=== PATIENT | female | born 1965 | race Caucasian/White ===

== ENCOUNTER 2020-04-09 19:26 | Emergency (ER) | payer BC, SELFPAY ==
[2020-04-09 19:40] VITALS: BP 119/88; PULSE 94; RESP 16; TEMP 37; O2SAT 99
[2020-04-09 19:47] VITALS: BP 119/88; PULSE 94; RESP 16; TEMP 37; O2SAT 99
--- NOTE | 2020-04-09 20:16 | ED.WOUNDLAC ---
HPI - Wound/Laceration General Chief Complaint: Extremity Injury, Lower Stated Complaint: Right tie Pain Time Seen by Provider: 04/09/20 19:50 Source: patient and RN notes reviewed Mode of arrival: ambulatory Limitations: no limitations History of Present Illness HPI narrative: Patient presents today complaining of an injury to her right great toenail that was sustained just prior to arrival. She missed a stair at home and bent the toenail back. She tried no home interventions prior to arrival. She is unsure of the date of her last tetanus vaccine. She declines to have her tetanus updated today and will check with her PCP. Related Data Home Medications Medication Instructions Recorded Confirmed duloxetine mg PO 04/09/20 levothyroxine 04/09/20 lovastatin mg 04/09/20 Allergies Allergy/AdvReac Type Severity Reaction Status Date / Time No Known Allergies Allergy Verified 06/14/18 14:01 Review of Systems Review of Systems: Narrative: CONSTITUTIONAL: Denies body aches, fever, chills, or sweats. EYES: Denies visual changes, redness, or discharge. ENT: Denies rhinorrhea, congestion, sore throat, or otalgia. CARDIOVASCULAR: Denies chest pain, palpitations, or edema. RESPIRATORY: Denies cough or dyspnea. GASTROINTESTINAL: Denies abdominal pain, nausea, vomiting, or diarrhea. GENITOURINARY: Denies dysuria or hematuria. SKIN: Denies rash, itching. Injury to right great toenail MUSCULOSKELETAL: Denies back pain, joint pain, or myalgia. NEUROLOGIC: Denies headache, numbness, tingling, or weakness. PSYCH: Denies depression or anxiety. [facility] Family History Family History (Updated 03/05/11 @ 14:05 by DOCTOR UNKNOWN) Other Family history of alcoholism Family history of arthritis Hypertension Social History Social History Alcohol intake: current Comments At time of signature, I have reviewed and agree with nursing past medical, surgical, social and family history unless otherwise noted. Please see nursing chart for further information. There is no relevant family history pertinent to the presenting complaint Exam Narrative: Exam Narrative: GENERAL: Well-appearing, well-nourished, and in no acute distress. HEAD: Normocephalic, atraumatic. EYES: EOMI. No redness or drainage. ENT: Mucous membranes pink and moist. NECK: Normal AROM. CHEST: No respiratory distress. EXTREMITIES: Normal range of motion. No edema. Right great toe: base of nail has been from nailbed, but has been placed back into anatomical position. There is a small amount of active bleeding at the base of the cuticle. The nail is intact. The nail seems to be attached to the nail bed at the distal half of the nailbed. Full AROM. Somewhat decreased sensation to the distal toe. Capillary refill normal. AROM normal. SKIN: Warm, dry, no rash. Capillary refill normal. Normal skin turgor. NEURO: No focal deficits. Alert and oriented x3. Gait steady. PSYCH: Normal affect. No signs of depression or anxiety. Course Course Emergency Course: Extensive discussion with patient regarding options for nail retention: best option would be to place sutures at each distal corner of the nail for ~4-6 weeks to allow the nail bed to heal and the nail to protect the bed for as long as possible before the nail inevitably falls off. This option would be somewhat painful as a digital block or local would have to be placed in order to get the sutures in place. Option [address] steri strips and glue to accomplish a similar goal, but would not be quite as secure and would not last for as long. It would not be as painful. Option [address] medical tape around the area that patient could change as needed. I gave patient the benefits of all of these options as she is very concerned about the costs associated with each. We did also discuss at length the fact that none of these options will give her a better chance at keeping her t
== END 2020-04-09 20:30 | disposition home or self-care (01) ==
PROVIDERS: Emergency Provider Nurse Practitioner; PCP Physician Assistant
DX: S99.921A Unspecified injury of right foot, initial encounter (principal); W10.9XXA Fall (on) (from) unspecified stairs and steps, initial encounter; E78.00 Pure hypercholesterolemia, unspecified; E03.9 Hypothyroidism, unspecified; F41.9 Anxiety disorder, unspecified
CPT/HCPCS: 12001; 99212; G0463

== ENCOUNTER → 2020-05-23 17:40 | Outpatient (CLI) | payer BC, SELFPAY ==
--- NOTE | ~2020-05-23 | MM_ITS ---
EXAMINATION: MM scrn dixie implant BI w mira HISTORY: Screening mammogram. TECHNIQUE: Craniocaudal and mediolateral oblique 3-D tomosynthesis images with implant displacement a nd synthetic 2-D images were generated. Craniocaudal and mediolateral oblique views of the breasts wi thout implant displacement were obtained using full field digital mammography. CAD analysis was submi tted and interpreted. COMPARISON: Comparison to multiple prior studies sequentially, with oldest reviewed study dated 09/2016. BREAST PARENCHYMAL COMPOSITION: There are scattered areas of fibroglandular density. FINDINGS: There are bilateral subpectoral saline implants. Bilateral breast asymmetries are stable. T here is no evidence of suspicious mass, calcification, or architectural distortion to suggest maligna ncy in either breast. There has been no suspicious interval change. IMPRESSION: 1. No mammographic evidence of malignancy. 2. Recommend routine screening mammography in one year. BI-RADS Category 1: Negative Reviewed, dictated and finalized at location A. O TECHNICIAN
== END ==
PROVIDERS: PCP Physician Assistant; Visit Provider Physician Assistant
DX: Z12.31 Encounter for screening mammogram for malignant neoplasm of breast (principal)
CPT/HCPCS: 77063; 77067

== ENCOUNTER → 2021-05-26 17:34 | Outpatient (CLI) | payer BC, SELFPAY ==
--- NOTE | ~2021-05-26 | MM_ITS ---
EXAMINATION: MM scrn dixie implant BI w mira HISTORY: Screening mammogram TECHNIQUE: Craniocaudal and mediolateral oblique 3-D tomosynthesis images with implant displacement a nd synthetic 2-D images were generated. Craniocaudal and mediolateral oblique views of the breasts wi thout implant displacement were obtained using full field digital mammography. CAD analysis was submi tted and interpreted. COMPARISON: Comparison to multiple prior studies sequentially, with oldest reviewed study dated 09/2016. BREAST PARENCHYMAL COMPOSITION: Breast composed of scattered areas of fibroglandular density FINDINGS: There is no evidence of suspicious mass, calcification, or architectural distortion to sugg est malignancy in either breast. There has been no suspicious interval change. IMPRESSION: 1. No mammographic evidence of malignancy. 2. Recommend routine screening mammography in one year. BI-RADS Category 1: Negative Reviewed, dictated and finalized at location A. FILLER
== END ==
PROVIDERS: PCP Physician Assistant; Visit Provider Physician Assistant
DX: Z12.31 Encounter for screening mammogram for malignant neoplasm of breast (principal)
CPT/HCPCS: 77063; 77067

== ENCOUNTER → 2022-09-21 13:11 | Outpatient (CLI) | payer BC, SELFPAY ==
--- NOTE | ~2022-09-21 | MM_ITS ---
EXAMINATION: MM scrn dixie implant BI w mira HISTORY: Screening mammogram TECHNIQUE: Craniocaudal and mediolateral oblique 3-D tomosynthesis images with implant displacement a nd synthetic 2-D images were generated. Craniocaudal and mediolateral oblique views of the breasts wi thout implant displacement were obtained using full field digital mammography. CAD analysis was submi tted and interpreted. COMPARISON: 05/26/2021, 05/2020, 04/11/2019 bilateral screening mammogram examinations BREAST PARENCHYMAL COMPOSITION: There are scattered areas of fibroglandular density. FINDINGS: Status post bilateral augmentation mammoplasty. There are 2 biopsy markers on the left. History of prior benign biopsy. There is no evidence of suspicious mass, calcification, or architectural distortion to suggest malign pedro in either breast. There has been no suspicious interval change. IMPRESSION: 1. No mammographic evidence of malignancy. 2. Recommend routine screening mammography in one year. BI-RADS Category 1: Negative Reviewed, dictated and finalized at location A.
== END ==
PROVIDERS: PCP Physician Assistant; Visit Provider Physician Assistant
DX: Z12.31 Encounter for screening mammogram for malignant neoplasm of breast (principal)
CPT/HCPCS: 77063; 77067

== ENCOUNTER 2023-10-03 08:08 | Emergency (ER) | payer OTHER, SELFPAY ==
--- NOTE | 2023-10-03 08:17 | ED.GENADULT ---
HPI - General Adult General Chief complaint: Upper Respiratory Infection Stated complaint: Cough Source: patient, RN notes reviewed and old records reviewed Mode of arrival: ambulatory Limitations: no limitations History of Present Illness HPI narrative: 50-year-old female presents to [facility] with complaints of left ear pain for the past 3 days, patient states then yesterday started having sinus congestion, rhinorrhea, cough, scratchy throat, fatigue. Patient states did work in damp basement for 2 days prior to symptoms. Patient has not taken anything for symptoms. Related Data Home Medications Medication Instructions Recorded Confirmed duloxetine 60 mg capsule,delayed mg PO 04/09/20 07/12/23 release levothyroxine 75 mcg tablet 04/09/20 07/12/23 lovastatin 40 mg tablet mg 04/09/20 07/12/23 Allergies Allergy/AdvReac Type Severity Reaction Status Date / Time No Known Allergies Allergy Verified 07/12/23 08:47 Review of Systems Constitutional: Constitutional: Reports no additional constitutional complaints, Denies body ache(s), Denies chills, Reports fatigue, Denies fever(s) and Denies headache(s) Eyes: Eyes: Reports no additional eye complaints and Denies blurry vision ENT: Reports system reviewed and no additional complaints, except as documented, Denies vertigo, Denies dizziness, Denies ear discharge, Reports otalgia, Denies facial pain, Denies headache(s), Reports nasal congestion, Reports nasal discharge, Denies sinus pain, Reports sinus pressure and Reports sore throat Cardiovascular: Cardiovascular: Reports no additional cardiovascular complaints, Denies chest pain, Denies chest pain at rest, Denies rapid heart rate and Denies dyspnea Respiratory: Respiratory: Reports no additional respiratory complaints, Reports chest congestion, Reports cough, Denies pain on inspiration, Denies pain with cough and Denies dyspnea Gastrointestinal: Gastrointestinal: Denies abdominal pain, Denies diarrhea, Denies nausea and Denies vomiting Integumentary/Breasts: Skin/Breast: Denies rash Neurologic: Reports system reviewed and no additional complaints, except as documented, Denies vertigo, Denies dizziness and Denies headache(s) Endocrine: Endocrine: Denies fatigue [facility] Surgical History Surgical History H/O breast augmentation Family History Family History Father Alcoholism Heart disease Sibling Depression Other Family history of alcoholism Family history of arthritis Hypertension Social History Social History Smoking status: Never smoker Alcohol intake: current Substance use: never Substance use type: does not use Do You Feel Safe in your Home?: Yes Lack of Transportation: No Lack of Food: Never True Current Housing: I Have Housing Concerned About Future Housing: No Difficulty Paying Gas/Electric Bills: No Difficulty Paying for Meds: No Currently Unemployed: No Education: High School Diploma/GED Difficulty w/ Childcare or Family Care: No Comments At the time of my signature, I reviewed and agree with the nursing past medical, surgical, social, and family history. There is no relevant family history pertinent to the patient complaint. Exam Const: General: cooperative, healthy appearing, no acute distress and well nourished Nutritional Appearance: well nourished Orientation/consciousness: patient oriented x3 Limitations: no limitations HENMT: Head: normal to inspection and normocephalic Ears: external ears normal, EAC's normal, mastoids normal and TM abnormal retracted bilateral Face/Nose/Sinus: Normal nasal mucous membranes and turbinates present, normal facial exam and sinuses nontender Face and sinus: normal facial exam Mouth: Yes Normal oral and palatal mucosa present, Yes oropharynx normal and Y
[2023-10-03 08:27] VITALS: BP 110/80; PULSE 88; RESP 20; TEMP 36.6; O2SAT 100
== END 2023-10-03 08:55 | disposition home or self-care (01) ==
PROVIDERS: Emergency Provider Registered Nurse; PCP Physician Assistant
DX: J30.9 Allergic rhinitis, unspecified (principal); Z20.822 Contact with and (suspected) exposure to COVID-19
CPT/HCPCS: 87081; 87426; 87880; 99213; G0463

== ENCOUNTER 2024-04-25 13:22 | Outpatient (CLI) | payer OTHER, SELFPAY ==
--- NOTE | ~2024-04-25 | MM_ITS ---
EXAMINATION: MM scrn dixie implant BI w mira HISTORY: Screening mammogram TECHNIQUE: Craniocaudal and mediolateral oblique 3-D tomosynthesis images with implant displacement a nd synthetic 2-D images were generated. Craniocaudal and mediolateral oblique views of the breasts wi thout implant displacement were obtained using full field digital mammography. CAD analysis was submi tted and interpreted. COMPARISON: Comparison to multiple prior studies sequentially, with oldest reviewed study dated 01/2018. BREAST PARENCHYMAL COMPOSITION: Not dense: There are scattered areas of fibroglandular density. FINDINGS: There is no evidence of suspicious mass, calcification, or architectural distortion to sugg est malignancy in either breast. There has been no suspicious interval change. IMPRESSION: 1. No mammographic evidence of malignancy. 2. Recommend routine screening mammography in one year. BI-RADS Category 1: Negative Reviewed, dictated and finalized at location B. IAL EDUCATION INCLUSION TEACHER
== END 2024-04-25 13:23 | disposition home or self-care (01) ==
LOC: MICIMG 13:22
PROVIDERS: PCP Physician Assistant; Visit Provider Obstetrics & Gynecology
DX: Z12.31 Encounter for screening mammogram for malignant neoplasm of breast (principal)
CPT/HCPCS: 77063; 77067

== ENCOUNTER 2024-08-27 08:12 | Outpatient (CLI) | payer OTHER, SELFPAY ==
--- NOTE | ~2024-08-27 | US_ITS ---
EXAMINATION TYPE: US breast BI complete COMPARISON: NONE REASON FOR STUDY: Breast implant status TECHNIQUE: Sonographic evaluation of the bilateral breasts was performed. INTERPRETATION: Bilateral persistent concern in place. No distinct evidence for intracapsular or extra capsular ruptu re sonographically. No solid or cystic lesion identified in the region scanned. IMPRESSION: No evidence for implant rupture on this exam. BI-RADS CATEGORY: BI-RADS 1: Normal. Reviewed, dictated and finalized at location .
== END 2024-08-27 08:13 | disposition home or self-care (01) ==
PROVIDERS: PCP Physician Assistant; Visit Provider Physician Assistant
DX: Z13.820 Encounter for screening for osteoporosis (principal); Z98.82 Breast implant status; K21.9 Gastro-esophageal reflux disease without esophagitis
CPT/HCPCS: 76641

== ENCOUNTER 2024-10-03 09:25 | Outpatient (CLI) | payer OTHER, SELFPAY ==
--- NOTE | ~2024-10-03 | XR_ITS ---
EXAMINATION: XR UGIAC wo kub DATE: 10/03/2024 10:17 INDICATION: Gastroesophageal reflux disease without esophagitis TECHNIQUE: The patient drank thick barium, gas-producing crystals, and thin barium. A total of 619 fl uoroscopic images of the esophagus, stomach, and proximal small bowel were obtained. Fluoroscopy expo sure time was 1.4 minutes. Total DAP was 7.037 Gycm^2. COMPARISON: None. FINDINGS: The esophagus is normal without mass or stricture. Esophageal motility is normal. There is no hiatal hernia. There was no gastroesophageal reflux with provocative maneuvers. The stomach and proximal sma ll bowel are normal. IMPRESSION: 1. Normal upper GI study. Reviewed, dictated and finalized at location A. IMPRESSION: 1. Normal upper GI study.
--- OUTSIDE RECORDS SUMMARY | 2024-10-03 10:17 | XMS_ITS | Data Portability ---
Author Organization [place] [facility] [place], Main Office Address [address] [place] [address] Assessment No assessment recorded. Plan of Treatment Reminders Order Date Submit Date Provider Last Modified By Organization Details Last Modified Time Details Appointments None recorded. Lab CMP, serum or plasma 023 023 [facility], [address], [place], [address], 3 19:29:18 CBC w/ auto diff 023 023 [facility], [address], [address], [place], [address], 3 19:29:18 HbA1c (hemoglob in A1c), blood 023 023 [facility], [address], [address], [place], [address], 3 19:29:18 TSH + free T4, serum 023 023 [facility], [address], [address], [place], [address], 3 19:29:18 lipid panel, serum 023 023 [facility], [address], [address], [place], [address], 3 19:29:18 Referral None recorded. Procedures None recorded. Surgeries None recorded. Imaging None recorded. Medication Orders Medrol (Daron) 4 mg tablets in a dose pack 023 023 [id number], [address], [place], [place], [id number], 3 11:35:54 Patient TargetsNo targets recorded. Patient InstructionsNo instructions recorded. Reason for Referral None Reported. Results Created Date Observation Date Name Description Value Unit Range Abnormal Flag Note LastModifiedBy Organization Detail LastModifiedTime 09/23/1909/21/2022 MAMMO , scree timothy, digit al, bilat eral No observ ation record ed. [email or web address] [facility] 20[address] Sebastien Medina [facility], [place], [address], 09/22/2022 14:23:15 Result Notes None recorded. Problems Name Problem SNOMED Code Status Onset Date Resolution Date Notes Provider Name and Address Organization Details Recorded Time Chest wall pain 580753196 Active Not Available [facility] 3 06:03:15 Bilateral knee pain Active 2021 Not Available [facility] 3 06:03:15 Blood glucose outside reference range 533464436 Active 2021 Not Available [facility] 3 06:03:16 Mammograph y abnormal 858677141 Active Not Available [facility] 3 06:03:16 Mood swings 73163446 Active Not Available [facility] 3 06:03:16 Osteoarthr itis of knee 367659818 Active Not Available [facility] 3 06:03:16 Gastroente ritis 43553688 Active Not Available [facility] 3 06:03:16 Perimenopa usal disorder 488123394 Active Not Available [facility] 3 06:03:16 Disorder of breast implant 981186275 Active Not Available [facility] 3 06:03:16 Pain in cervical spine 176570679 Active Not Available [facility] 3 06:03:16 Low back pain 831612891 Active Not Available [facility] 3 06:03:16 Hypoglycem ia 302370708 Active Not Available [facility] 3 06:03:16 Lesion of ulnar nerve 261806137 Active Not Available [facility] 3 06:03:16 Osteoarthr itis 618316121 Active Not Available [facility] 3 06:03:16 Hypothyroi dism 15960285 Active 2021 Not Available [facility] 3 06:03:16 Infectious enteritis of intestine 40411555 Active Not Available [facility] 3 06:03:16 Hyperlipid emia 41493666 Active 2019 Not Available [facility] 3 06:03:17 Occult blood detected in feces 48331004 Active Not Available [facility] 3 06:03:17 Stress 76617073 Active Not Available [facility] 3 06:03:17 Left temporoman dibular joint disorder 4206244251467 9100 Active 2022 MATTHIAS Erwin [address] [facility], [address] [address], [place], [address] , 71lbs [facility] [employer] [facility] 3 11:35:13 Pain of left temporoman dibular joint 8198277946228 9107 Active 2022 MATTHIAS Erwin [address] [facility], [address], [place], [address] , [employer] [facility] [employer] [facility] 3 11:35:19 Problem Notes None recorded. Procedures Surgical History Date Name Laterality Status Provider Name and Address Organization Details Recorded Time 12/22/19 23 Cataract Surgery completed CALVIN Gooden [employer] [facility] 01/07/2023 16:30:26 09/22/19 23 Date of Last Mammogram completed CALVIN Gooden Jody [employer] [facility] 09/22/2022 14:22:55 06/20/19 23 Cataract Surgery completed CALVIN Gooden [place] [employer] [facility] 06/07/2023 11:00:43 06/06/20 15 Date of Last Colonoscopy completed Not Available [facility] 08/18/2022 05:56:29 06/06/20 15 colonoscopy completed Not Available [facility] 08/19/19 05:56:31 Breast augmentation w/implt completed Not Available [facility] 08/18/2022 05:56:31 Orthopedic Surgery completed Not Available [facility] 08/18/2022 05:56:31 Lasik completed Not Available [facility] 06/2022 05:56:31 Orthopedic Surgery completed Not Available [facility] 08/18/2022 05:56:31 Imaging Results Imaging Date Name Status LastModified by Organiz ation Details LastModified Time 09/21/2022 MAMMO, screening, digital, bilateral completed [email or web address] [facility] [address], [place], [address], 09/22/2022 14:23:15 Procedure Notes None recorded. Medical Equipment None Reported. Allergies No known drug allergies Medications Name Sig Start Date Stop Date Status Note LastModified by Organization Details LastModified Time binaxnow cov kit home lambert 01/06 completed Not Available Not Available Not Available valacyclovi r 1 gram tablet TK 1 T PO Q 8 H 12/25 completed Not Available Not Available Not Available prednisone 20 mg tablet 2 tabs po daily x 5 days 05/19 completed Not Available Not Available Not Available lovastatin 40 mg tablet TAKE 1 TABLET BY MOUTH EVERY DAY 2023 active Not Available Not Available Not Avai lable ciprofloxac in 500 mg tablet Take 1 tablet every 12 hours by oral route. active Not Available Not Available No t Available levothyroxi ne 75 mcg tablet TAKE 1 TABLET BY MOUTH EVERY DAY IN THE MORNING 2023 active Not Available Not Available Not Avai lable ketorolac 0.5 % eye drops 01/07 completed Not Available Not Available Not Available prednisolon e acetate 1 % eye drops,suspe nsion 01/06 completed Not Available Not Available Not Available triamcinolo ne acetonide 0.025 % topical cream BOB THIN LAYER EXT AA BID 12/31 completed Not Available Not Available Not Available levothyroxi ne 50 mcg tablet TAKE 1 TABLET BY MOUTH EVERY DAY IN THE MORNING 11/18 completed Not Available Not Available Not Available erythromyci n 5 mg/gram (0.5 %) eye ointment APPLY A SMALL AMOUNT INTO LEFT EYE AT BEDTIME FOR 14 DAYS 12/31 completed Not Available Not Available Not Available neomycin-po lymyxin-dex ameth 3.5 mg/mL-10,00 0 unit/mL-0.1 % eye drops SHAKE WELL AND INSTILL 1 DROP INTO THE LEFT EYE QID FOR 7 DAYS active Not Available Not Available No t Available diclofenac sodium 75 mg tablet,melida yed release 11/18 completed Not Available Not Available Not Available lovastatin 20 mg tablet TK 1 T PO QD HS active Not Available Not Available No t Available methylpredn isolone 4 mg tablets in a dose pack FOLLOW PACKAGE DIRECTION S active Not Available Not Available No t Available naproxen 500 mg tablet 11/18 completed Not Available Not Available Not Available moxifloxaci n 0.5 % eye drops 01/06 completed Not Available Not Available Not Available duloxetine 30 mg capsule,del ayed release TAKE 3 CAPSULES BY MOUTH EVERY DAY 11/19 completed Not Available Not Available Not Available duloxetine 60 mg capsule,del ayed release TAKE 1 CAPSULE BY MOUTH DAILY 2023 active Not Available Not Available Not Avai lable Besivance 0.6 % eye drops,suspe nsion SHAKE LIQUID AND INSTILL 1 DROP IN LEFT EYE FOUR TIMES DAILY 12/31 completed Not Available Not Available Not Available Suprep Bowel Prep Kit 17.5 gram-3.13 gram-1.6 gram oral solution active Not Available Not Available Not Available BinaxNOW COVID-19 Ag Self Test kit Use as Directed on the Package 07/09 completed Not Available Not Available Not Available Wegovy 0.25 mg/0.5 mL subcutaneou s pen injector ADMINISTE R 0.5 ML UNDER THE SKIN EVERY WEEK DIRECTED 11/17 completed Not Available Not Available Not Available Vuity 1.25 % eye drops INSTILL 1 DROP IN BOTH EYES EVERY DAY 07/09 completed Not Available Not Available Not Available Vitals Date Recorded Body mass index (BMI) Body height Oxygen saturation Oxygen saturation in Arterial blood by Pulse oximetry Heart rate Body temperature Body weight Systolic blood pressure Diastolic blood pressure Provider Name and Address Organization Details Last Updated DateTime 2 31.3 kg/m2 175.26 cm 99 % 99 % 100 /min 97.6 [degF] 16615.5 8 g 118 mm[Hg] 70 mm[Hg] Not Available [facility] 3 06:02:04 Date Recorded Body mass index (BMI) Body height Oxygen saturation Oxygen saturation in Arterial blood by Pulse oximetry Heart rate Respiratory rate Body temperature Body weight Systolic blood pressure Diastolic blood pressure Provider Name and Address Organization Details Last Updated DateTime 2 32.4 kg/m2 175.26 cm 95 % 95 % 90 /min 16 /min 96.2 [degF] 83862.1 7 g 122 mm[Hg] 80 mm[Hg] Not Available [facility] 3 06:02:04 Date Recorded Body mass index (BMI) Body height Oxygen saturation Oxygen saturation in Arterial blood by Pulse oximetry Heart rate Respiratory rate Body temperature Body weight Systolic blood pressure Diastolic blood pressure Provider Name and Address Organization Details Last Updated DateTime 3 30.9 kg/m2 175.26 cm 97 % 97 % 84 /min 16 /min 97.2 [degF] 15236.8 1 g 120 mm[Hg] 80 mm[Hg] Not Available [facility] 3 06:02:05 Date Recorded Body height Body temperature Body mass index (BMI) Body weight Respiratory rate Oxygen saturation Oxygen saturation in Arterial blood by Pulse oximetry Heart rate Systolic blood pressure Diastolic blood pressure Provider Name and Address Organization Details Last Updated DateTime 3 175.26 cm 96.5 [degF] 31.7 kg/m2 99105.3 6 g 16 /min 97 % 97 % 88 /min 128 mm[Hg] 80 mm[Hg] CALVIN Gooden [place] [facility] 3 16:31:03 Date Recorded Body height Body temperature Body mass index (BMI) Body weight Respiratory rate Oxygen saturation Oxygen saturation in Arterial blood by Pulse oximetry Heart rate Systolic blood pressure Diastolic blood pressure Provider Name and Address Organization Details Last Updated DateTime 3 175.26 cm 97.7 [degF] 32.2 kg/m2 93272.1 4 g 16 /min 96 % 96 % 105 /min 120 mm[Hg] 78 mm[Hg] Angi Thompson, [place] [facility] 3 11:01:27 Social History Question Answer Notes LastModified by Organizat ion Details LastModified Time Tobacco Smoking Status Never Smoker Not Available [facility] 08/18/2022 05:56:04 What Is Your Level Of Alcohol Consumption? Occasional [id number] Information not available 08/18/2022 What Is Your Level Of Caffeine Consumption? Heavy MIGRATION.[id number] Information not available 08/18/2022 How Much Tobacco Do You Chew? None MIGRATION.[id number] Information not available 08/18/2022 In The 14 Days Before Symptom Onset, Have You Had Close Contact With A Laboratory-confir med COVID-19 While That Case Was Ill? No MIGRATION.[id number] Information not available 08/18/2022 In The 14 Days Before Symptom Onset, Have You Had Close Contact With A Person Who Is Under Investigation For COVID-19 While That Person Was Ill? No MIGRATION.74752 [id number] Information not available 08/18/2022 Are You Currently Employed? Yes [email or web address] Information not available 01/06/2023 What Type Of Diet Are You Following? REGULAR [id number].30440 [id number] Information not available 08/18/2022 Which Illicit Or Recreational Drugs Have You Used? No MIGRATION.[id number] Information not available 08/18/2022 Do You Or Have You Ever Used E-cigarettes Or Vape? 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 No MIGRATION.41090 06825 Information not available 08/18/2022 Do You Use Insect Repellent Routinely? No MIGRATION.97457 [id number] Information not available 08/18/2022 What Is Your Relationship Status? MIGRATION.70741 [id number] Information not available 08/18/2022 Do You Use Your Seat Belt Or Car Seat Routinely? Yes MIGRATION.91703 [id number] Information not available 08/18/2022 Do You Have Smoke And Carbon Monoxide Detectors In Your Home? Yes MIGRATION.46965 81461 Information not available 08/18/2022 Do You Or Have You Ever Used Smokeless Tobacco? Never Used Smokeless Tobacco MIGRATION.50244 24094 Information not available 08/18/2022 How Much Tobacco Do You Smoke? No MIGRATION.18574 76957 Information not available 08/18/2022 Do You Use Any Illicit Or Recreational Drugs? No MIGRATION.09229 85370 Information not available 08/18/2022 Do You Use Sunscreen Routinely? Yes MIGRATION.57361 96784 Information not available 08/18/2022 Have You Recently Traveled Abroad? No MIGRATION.63380 55584 Information not available 08/18/2022 Do You Have Any Dietary Restrictions? No MIGRATION.06081 15324 Information not available 08/18/2022 Do You Or Have You Ever Used Any Other Forms Of Tobacco Or Nicotine? No MIGRATION.66756 58238 Information not available 08/18/2022 Sex: Unknown Functional Status Question Answer Note LastModified by Organizat ion Details LastModified Time What is your exercise level? None [id number] Information not available 08/18/2022 Mental Status None recorded. Family History Relationship Description Onset Age of this Age Resolved Age Notes LastModified by Organization Details LastModified Time Paternal Aunt Malignant tumor of rectum [id number] Not available 08/18/2022 05:56:38 Mother Aneurysm [id number] [id number] Not available 08/18/2022 05:56:38 Mother Congestive heart failure [id number] [id number] Not available 08/18/2022 05:56:38 Brother Diabetes mellitus [id number] Not available 08/18/2022 05:56:38 Medical History Condition Response EYE PROBLEMS Y HEADACHES/MIGRAINES Y NERVE DISEASE Y ANXIETY DISORDER Y DIZZINESS Y BREAST PROBLEMS BOWEL PROBLEMS Y BACK / NECK PROBLEMS Y HIGH CHOLESTEROL / HYPERLIPIDEMIA Y Gynecological History Statement/Question Response Abnormal Pap Y Date of Last Mammogram 05/23/2020 Date of Last Mammogram 09/21/2022 Date of Last Colonoscopy 06/06/2015 Date of LMP Date of Last Pap Smear Current Control Method Menopause Age at Menarche 17 Most Recent Mammogram Breast Problems no Obstetrics History GPAL:G 2 P 1 0 1 1 Type Value Full Term 1 Spontaneous 1 Living 1 Total 2 Past Encounters Encounter ID Performer Location Encounter Start Date Encounter Closed Date Diagnosis/Indication Diagnosis SNOMED-CT Code Diagnosis ICD10 Code Diagnosis Note [id number] _ATHENA_M IGRATION_ DEFAULT_1 _1 , 11/18/2020 00:00:00 11/18/2020 18:01:03 [id number] [facility] [address] [place] [address] 12/31/2020 00:00:00 01/16/2021 15:02:23 [id number] [facility] [address] [place] [address] 07/03/2021 00:00:00 07/20/2021 10:20:13 [id number] [facility] [address] [place] [address] 01/01/2022 00:00:00 01/17/2022 00:57:02 [id number] [facility] [address] [place] [address] 07/09/2022 00:00:00 07/20/2022 18:00:52 [id number] MATTHIAS Erwin [facility] [address] [place] [address] 01/07/2023 16:24:59 01/07/2023 17:08:37 Adult health examination 153185851 Z00.01 well exam completed Hyperlipidemia 16874112 E78.5 stable on lovastatin 40mg daily. due for fasting labs Blood gluc ose outside reference range 433527459 R73.09 following A1c just into prediabete s range in past. due for repeat lab Hypothyroidism 99284784 E03.9 stable on thyroid supplement . due for TFTs Long-term drug therapy 737977031 Z79.899 routine CBC and CMP due [id number] MATTHIAS Erwin [facility] [address] [place] [address] 06/07/2023 10:52:24 06/07/2023 11:35:18 Adult health examination 893870651 Z00.01 well exam completed Hyperlipidemia 81204500 E78.5 stable on lovastatin 40mg daily. Blood gluc ose outside reference range 159139280 R73.09 following A1c just into prediabete s range in past. Hypothyroidism 95159045 E03.9 stable on thyroid supplement . Long-term drug therapy 600341260 Z79.899 labs are all UTD Pain of le ft temporomandibular joint 7917410764 0868998 M26.622 rx for MDP Health Concerns Section Related Observation LastModified by Organization Detai ls LastModified Time None Recorded Concern Status LastModified by Organization Details LastModified Time None Recorded Advance Directives Directive None Recorded Payers Encounter Date Sequence Insurance Name Policy Number Policy Rehman Covered Member ID Rehman Member ID Guarantor Name 01/07/2023 1 [facility] [id number] Aranza Sunshine [id number] Aranza Sunshine 06/07/2023 1 [facility] [id number] Aranza Sunshine [id number] Aranza Sunshine Notes Date Note Type Note Provider Name and Address Organization Details Recorded Time 022 text/h tml Anxiety/DepressionReported bypatient.Severity:denies suicidal ideations; able to maintain relationships; does not interfere with activities of daily living Context:no major life stressors Associated Symptoms:denies homicidal ideations; no significant weight gain; no significant weight loss; no visual/auditory hallucinations; no delusions; no shortness of breath; mood good; no anxiety; no crying spells; no panic; no isolation; sleeping well; appetite good; energy good; no apathy; maintaining functionalityHyperlipidemiaReported bypatient.Control:usually well controlled; improving; at goal Compliance:compliant; compliant with diet; exercises Complications:no coronary artery disease; no peripheral artery disease; no cardiovascular diseaseHypothyroidismReported bypatient.Onset/Timing:better Context/Risk:normal thyroid levels; no history of head or neck radiation during childhood; no history of thyroid disease; no history of hypothyroidism; no history of hyperthyroidism; no excess iron exposure Exercisegets exercise Associated Symptoms:no cold intolerance; no heat intolerance; no weight loss; no weight gain; no double vision; no dry eyes; no hoarseness; no difficulty swallowing; no neck masses; no deepening of the voice; no fast heart rate; no increased blood pressure; no palpitations; no chest pain; no chest tightess or pressure; no constipation; no diarrhea; no vomiting; no decreased appetite; no loose stools; no irregular menstrual periods; no excessive sweating; no joint pain; no numbness; no tingling of the hands or feet; no dry skin; no tremor; no nervousness; no anxiety; no depression; no fatigue; no sleep difficulties; no skin changes; no hair changes Not Available [facility] [employer] [facility] 07/20/2021 10:20:13 022 text/h tml HyperlipidemiaReported bypatient.Duration:chronic Control:usually well controlled Current Therapy:currently taking: (lovastatin 40mg) Compliance:compliant;noncompliant with diet;does not exercise Complications:no coronary artery disease; no peripheral artery disease; no cardiovascular diseaseHypothyroidismReported bypatient.Quality:not changing Duration:constant Onset/Timing:still present Context/Risk:normal thyroid levels; no history of head or neck radiation during childhood; no history of thyroid disease; no history of hyperthyroidism; no excess iron exposure;history of hypothyroidism;female gender Modifying Factors:medication Exerciseno exercise Associated Symptoms:no cold intolerance; no heat intolerance; no weight loss; no weight gain; no double vision; no dry eyes; no hoarseness; no difficulty swallowing; no neck masses; no deepening of the voice; no fast heart rate; no increased blood pressure; no palpitations; no chest pain; no chest tightess or pressure; no constipation; no diarrhea; no vomiting; no decreased appetite; no loose stools; no irregular menstrual periods; no excessive sweating; no joint pain; no numbness; no tingling of the hands or feet; no dry skin; no tremor; no nervousness; no anxiety; no depression; no fatigue; no sleep difficulties; no skin changes; no hair changes Not Available [facility] [employer] [facility] [employer] [facility] 01/17/2022 00:57:02 023 text/h tml HyperlipidemiaReported bypatient.Duration:chronic Control:usually well controlled Current Therapy:currently taking: (lovastatin 40mg) Compliance:compliant;noncompliant with diet;does not exercise Complications:no coronary artery disease; no peripheral artery disease; no cardiovascular diseaseHypothyroidismReported bypatient.Quality:not changing Duration:constant Onset/Timing:still present Context/Risk:normal thyroid levels; no history of head or neck radiation during childhood; no history of thyroid disease; no history of hyperthyroidism; no excess iron exposure;history of hypothyroidism;female gender Modifying Factors:medication Exerciseno exercise Associated Symptoms:no cold intolerance; no heat intolerance; no weight loss; no weight gain; no double vision; no dry eyes; no hoarseness; no difficulty swallowing; no neck masses; no deepening of the voice; no fast heart rate; no increased blood pressure; no palpitations; no chest pain; no chest tightess or pressure; no constipation; no diarrhea; no vomiting; no decreased appetite; no loose stools; no irregular menstrual periods; no excessive sweating; no joint pain; no numbness; no tingling of the hands or feet; no dry skin; no tremor; no nervousness; no anxiety; no depression; no fatigue; no sleep difficulties; no skin changes; no hair changes Not Available [facility] [place] 07/20/2022 18:00:52 023 text/h tml HyperlipidemiaReported bypatient.Duration:chronic Control:usually well controlled Compliance:compliant;noncompliant with diet;does not exercise Complications:no coronary artery disease; no peripheral artery disease; no cardiovascular diseaseHypothyroidismReported bypatient.Quality:not changing Duration:constant Onset/Timing:still present Context/Risk:normal thyroid levels; no history of head or neck radiation during childhood; no history of thyroid disease; no history of hyperthyroidism; no excess iron exposure;history of hypothyroidism;female gender Modifying Factors:medication Exerciseno exercise Associated Symptoms:no cold intolerance; no heat intolerance; no weight loss; no weight gain; no double vision; no dry eyes; no hoarseness; no difficulty swallowing; no neck masses; no deepening of the voice; no fast heart rate; no increased blood pressure; no palpitations; no chest pain; no chest tightess or pressure; no constipation; no diarrhea; no vomiting; no decreased appetite; no loose stools; no irregular menstrual periods; no excessive sweating; no joint pain; no numbness; no tingling of the hands or feet; no dry skin; no tremor; no nervousness; no anxiety; no depression; no fatigue; no sleep difficulties; no skin changes; no hair changes MATTHIAS Marroquin [address] [place] [address] Ave, [address] [address], [place], [address], [employer] [facility] 01/15/2023 23:10:11 06/07/ 023 text/h tml HyperlipidemiaReported bypatient.Duration:chronic Control:usually well controlled Compliance:compliant; compliant with diet;does not exercise Complications:no coronary artery disease; no peripheral artery disease; no cardiovascular diseaseHypothyroidismReported bypatient.Quality:not changing Duration:constant Onset/Timing:still present Context/Risk:normal thyroid levels; no history of head or neck radiation during childhood; no history of thyroid disease; no history of hyperthyroidism; no excess iron exposure;history of hypothyroidism;female gender Modifying Factors:medication Exerciseno exercise Associated Symptoms:no cold intolerance; no heat intolerance; no weight loss; no weight gain; no double vision; no dry eyes; no hoarseness; no difficulty swallowing; no neck masses; no deepening of the voice; no fast heart rate; no increased blood pressure; no palpitations; no chest pain; no chest tightess or pressure; no constipation; no diarrhea; no vomiting; no decreased appetite; no loose stools; no irregular menstrual periods; no excessive sweating; no joint pain; no numbness; no tingling of the hands or feet; no dry skin; no tremor; no nervousness; no anxiety; no depression; no fatigue; no sleep difficulties; no skin changes; no hair changes Wellness MATTHIAS Erwin [address], [place], [address], [employer] [facility] 06/17/2023 12:22:19 OBGyn Episode No OBEpisode recorded.
== END 2024-10-03 09:26 | disposition home or self-care (01) ==
PROVIDERS: PCP Physician Assistant; Visit Provider Physician Assistant
DX: K21.9 Gastro-esophageal reflux disease without esophagitis (principal)
CPT/HCPCS: 74246

== ENCOUNTER 2024-10-31 10:20 | Outpatient (CLI) | payer OTHER, SELFPAY ==
--- OUTSIDE RECORDS SUMMARY | 2024-10-31 10:44 | XMS_ITS | Referral Summary ---
Author Organization [facility] 8 [facility] Address [address] [place] [address] Care Team Providers Care Firmware Architect Name Role Phone Kim Lanier Primary Care Pr ovider Allergies No known active allergies Medications DULoxetine DR (CYMBALTA) 60 mg capsule 7 Active methylPREDNISo lone (MEDROL DOSEPACK) 4 mg tablet 7 Active predniSONE (DELTASONE) 20 mg tablet 7 Active levothyroxine (SYNTHROID) 75 mcg tablet levothyroxine 75 mcg tablet TAKE 1 TABLET BY MOUTH EVERY DAY IN THE MORNING Active lovastatin (MEVACOR) 40 mg tablet lovastatin 40 mg tablet TAKE 1 TABLET BY MOUTH EVERY DAY Active Wegovy 0.25 mg/0.5 mL auto-injector 3 Active Active Problems Problem Noted Date Diagnosed Date Chest wall pain 04/21/2022 Disorder of breast implant 04/21/2022 Gastroenteritis 04/21/2022 Hypoglycemia 04/21/2022 Lesion of ulnar nerve 04/21/2022 Low back pain 04/21/2022 Mood swings 04/21/2022 Occult blood in stools 04/21/2022 Osteoarthritis of knee 04/21/2022 Pain of cervical spine 04/21/2022 Perimenopausal disorder 04/21/2022 Stress 04/21/2022 Abnormal finding on mammography 04/21/2022 Blood glucose abnormal 01/01/2022 Bilateral knee pain 01/01/2022 Hypothyroidism 12/31/2021 Hyperlipidemia 12/26/2019 Social History Tobacco Use Types Packs/Day Years Used Date Smoking Tobacco: Never Smokeless Tobacco: Never Alcohol Use Standard Drinks/Week Comments Yes 0 (1 standard drink = 0.6 oz pur e alcohol) Comments Unknown Sex and Gender Information Value Date Recorded Sex Assigned at Not on file 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 Gender Identity Not on file Sexual Orientation Not on file Last Filed Vital Signs Vital Sign Reading Time Taken Comments Blood Pressure 119/83 11/08/2022 9:10 AM CDT Pulse 76 11/08/2022 9:10 AM CDT Temperature - - Respiratory Rate - - Oxygen Saturation - - Inhaled Oxygen Concentration - - Weight 93.9 kg (207 lb) 11/08/2022 9:10 AM CDT Height 175.3 cm (5' 9 ) 11/08/2022 9:10 AM CDT Body Mass Index 30.57 11/08/2022 9:10 AM CDT Plan of Treatment Not on file Insurance [facility] CHO[facility] PL[facility] Care Teams Firmware Architect Relationship Specialty Start Date End Date Kim Lanier PA PCP - General Physician Hand Buffer 10/04/22
--- OUTSIDE RECORDS SUMMARY | 2024-10-31 10:44 | XMS_ITS | Data Portability ---
Author Organization [place] - [facility] [employer], Main Office Address [address] [place] [address] Assessment No assessment recorded. Plan of Treatment Reminders Order Date Submit Date Provider Last Modified By Organization Details Last Modified Time Details Appointments None recorded. Lab CMP, serum or plasma 023 023 [place] [facility] [address], [place], [address], 3 19:29:18 CBC w/ auto diff 023 023 [facility], [address], [place], [address], 3 19:29:18 HbA1c (hemoglob in A1c), blood 023 023 [place] [facility], [address], [place], [address], 3 19:29:18 TSH + free T4, serum 023 023 [place] [facility], [address], [place], [address], 3 19:29:18 lipid panel, serum 023 023 [place] [facility], [address], [place], [address], 3 19:29:18 Referral None recorded. Procedures None recorded. Surgeries None recorded. Imaging None recorded. Medication Orders Medrol (Daron) 4 mg tablets in a dose pack 023 023 [place] [id number], [address], [place], [place], [id number], 3 11:35:54 Patient TargetsNo targets recorded. Patient InstructionsNo instructions recorded. Reason for Referral None Reported. Results Created Date Observation Date Name Description Value Unit Range Abnormal Flag Note LastModifiedBy Organization Detail LastModifiedTime 09/23/1909/21/2022 MAMMO , scree timothy, digit al, bilat eral No observ ation record ed. [email or web address] [facility] [address] [facility], [place], [address], 09/22/2022 14:23:15 Result Notes None recorded. Problems Name Problem SNOMED Code Status Onset Date Resolution Date Notes Provider Name and Address Organization Details Recorded Time Chest wall pain 576076985 Active Not Available [facility] 3 06:03:15 Bilateral knee pain Active 2021 Not Available [facility] 3 06:03:15 Blood glucose outside reference range 743200220 Active 2021 Not Available [facility] 3 06:03:16 Mammograph y abnormal 844078949 Active Not Available [facility] 3 06:03:16 Mood swings 28156027 Active Not Available [facility] 3 06:03:16 Osteoarthr itis of knee 230173232 Active Not Available [facility] 3 06:03:16 Gastroente ritis 98741162 Active Not Available [facility] 3 06:03:16 Perimenopa usal disorder 439884488 Active Not Available [facility] 3 06:03:16 Disorder of breast implant 233382598 Active Not Available [facility] 3 06:03:16 Pain in cervical spine 697492675 Active Not Available [facility] 3 06:03:16 Low back pain 095996262 Active Not Available [facility] 3 06:03:16 Hypoglycem ia 351126978 Active Not Available [facility] 3 06:03:16 Lesion of ulnar nerve 378743749 Active Not Available [facility] 3 06:03:16 Osteoarthr itis 151580950 Active Not Available [facility] 3 06:03:16 Hypothyroi dism 30188312 Active 2021 Not Available [facility] 3 06:03:16 Infectious enteritis of intestine 70542805 Active Not Available [facility] 3 06:03:16 Hyperlipid emia 02455198 Active 2019 Not Available [facility] 3 06:03:17 Occult blood detected in feces 83580801 Active Not Available [facility] 3 06:03:17 Stress 09634049 Active Not Available [facility] 3 06:03:17 Left temporoman dibular joint disorder 5982639681532 9100 Active 2022 MATTHIAS Erwin [address] [facility], [address] [address], [place], [address] , [employer] [facility] [employer] [facility] 3 11:35:13 Pain of left temporoman dibular joint 7082448477760 9107 Active 2022 MATTHIAS Erwin [address] [facility], [address], [place], [address] , [employer] [facility] [employer] [facility] 3 11:35:19 Problem Notes None recorded. Procedures Surgical History Date Name Laterality Status Provider Name and Address Organization Details Recorded Time 12/22/19 23 Cataract Surgery completed CALVIN Gooden Trippy [employer] [facility] 01/07/2023 16:30:26 09/22/19 23 Date of Last Mammogram completed CALVIN Gooden Jody [employer] [facility] 09/22/2022 14:22:55 06/20/19 23 Cataract Surgery completed CALVIN Gooden [place] Ray S [facility] [employer] [facility] 06/07/2023 11:00:43 06/06/20 15 Date of Last Colonoscopy completed Not Available [facility] 08/18/2022 05:56:29 06/06/20 15 colonoscopy completed Not Available [facility] 08/19/19 05:56:31 Breast augmentation w/implt completed Not Available [facility] 08/18/2022 05:56:31 Orthopedic Surgery completed Not Available [facility] 08/18/2022 05:56:31 Lasik completed Not Available [facility] 06/2022 05:56:31 Orthopedic Surgery completed Not Available [facility] 08/18/2022 05:56:31 Imaging Results Imaging Date Name Status LastModified by Organiz ation Details LastModified Time 09/21/2022 MAMMO, screening, digital, bilateral completed [email or web address] [facility] [address] [facility] [address], [place], [address], 09/22/2022 14:23:15 Procedure Notes None recorded. Medical [...] % 99 % 100 /min 97.6 [degF] 77183.5 8 g 118 mm[Hg] 70 mm[Hg] Not Available [facility] 3 06:02:04 Date Recorded Body mass index (BMI) Body height Oxygen saturation Oxygen saturation in Arterial blood by Pulse oximetry Heart rate Respiratory rate Body temperature Body weight Systolic blood pressure Diastolic blood pressure Provider Name and Address Organization Details Last Updated DateTime 2 32.4 kg/m2 175.26 cm 95 % 95 % 90 /min 16 /min 96.2 [degF] 15824.1 7 g 122 mm[Hg] 80 mm[Hg] Not Available [facility] 3 06:02:04 Date Recorded Body mass index (BMI) Body height Oxygen saturation Oxygen saturation in Arterial blood by Pulse oximetry Heart rate Respiratory rate Body temperature Body weight Systolic blood pressure Diastolic blood pressure Provider Name and Address Organization Details Last Updated DateTime 3 30.9 kg/m2 175.26 cm 97 % 97 % 84 /min 16 /min 97.2 [degF] 63945.8 1 g 120 mm[Hg] 80 mm[Hg] Not Available [facility] 3 06:02:05 Date Recorded Body height Body temperature Body mass index (BMI) Body weight Respiratory rate Oxygen saturation Oxygen saturation in Arterial blood by Pulse oximetry Heart rate Systolic blood pressure Diastolic blood pressure Provider Name and Address Organization Details Last Updated DateTime 3 175.26 cm 96.5 [degF] 31.7 kg/m2 56251.3 6 g 16 /min 97 % 97 % 88 /min 128 mm[Hg] 80 mm[Hg] [place] Gooden [place] [facility] 3 16:31:03 Date Recorded Body height Body temperature Body mass index (BMI) Body weight Respiratory rate Oxygen saturation Oxygen saturation in Arterial blood by Pulse oximetry Heart rate Systolic blood pressure Diastolic blood pressure Provider Name and Address Organization Details Last Updated DateTime 3 175.26 cm 97.7 [degF] 32.2 kg/m2 10546.1 4 g 16 /min 96 % 96 % 105 /min 120 mm[Hg] 78 mm[Hg] Angi Thompson, [place] [facility] 3 11:01:27 Social History Question Answer Notes LastModified by [employer] ion Details LastModified Time Tobacco Smoking Status Never Smoker Not Available [facility] 08/18/2022 05:56:04 What Is Your Level Of Caffeine Consumption? Heavy [id number] Information not available 08/18/2022 How Much Tobacco Do You Chew? None MIGRATION.[id number] 026 Information not available 08/18/2022 In The 14 Days Before Symptom Onset, Have You Had Close Contact With A Laboratory-confirm ed COVID-19 While That Case Was Ill? No [id number].[id number] 026 Information not available 08/18/2022 In The 14 Days Before Symptom Onset, Have You Had Close Contact With A Person Who Is Under Investigation For COVID-19 While That Person Was Ill? No [id number].[id number] 026 Information not available 08/18/2022 What Type Of Diet Are You Following? REGULAR MIGRATION.[id number] 026 Information not available 08/18/2022 Which Illicit Or Recreational Drugs Have You Used? No [id number].[id number] 026 Information not available 08/18/2022 Have There Been Any Changes To Your Family Or Social Situation? No [id number].[id number] 026 Information not available 08/18/2022 Do You Use Insect Repellent Routinely? No MIGRATION.[id number] 026 Information not available 08/18/2022 What Is Your Relationship Status? MIGRATION.[id number] 026 Information not available 08/18/2022 Do You Use Your Seat Belt Or Car Seat Routinely? Yes MIGRATION.[id number] 026 Information not available 08/18/2022 Do You Have Smoke And Carbon Monoxide Detectors In Your Home? Yes MIGRATION.[id number] 026 Information not available 08/18/2022 How Much Tobacco Do You Smoke? No MIGRATION.[id number] 026 Information not available 08/18/2022 Do You Use Sunscreen Routinely? Yes MIGRATION.4637181 026 Information not available 08/18/2022 Have You Recently Traveled Abroad? No MIGRATION.5469846 026 Information not available 08/18/2022 Do You Have Any Dietary Restrictions? No MIGRATION.6724826 026 Information not available 08/18/2022 Sex: Unknown Functional Status Question Answer Note LastModified by Organizat ion Details LastModified Time Do you use any illicit or recreational drugs? No MIGRATION.[id number] 9456 Information not available 08/18/2022 Do you or have you ever used any other forms of tobacco or nicotine? No MIGRATION.220435 9546 Information not available 08/18/2022 What is your level of alcohol consumption? Occasional MIGRATION.504315 3886 Information not available 08/18/2022 Do you or have you ever used smokeless tobacco? Never used smokeless tobacco MIGRATION.774898 2974 Information not available 08/18/2022 Are you currently employed? 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 Never used electronic cigarettes MIGRATION.268368 1209 Information not available 08/18/2022 What is your exercise level? None MIGRATION.114324 9734 Information not available 08/18/2022 Mental Status None recorded. Family History Relationship Description Onset Age of this Age Resolved Age Notes LastModified by Organization Details LastModified Time Paternal Aunt Malignant neoplasm of rectum MIGRATION.[id number] Not available 08/18/2022 05:56:38 Mother Aneurysm MIGRATION.119 [id number] Not available 08/18/2022 05:56:38 Mother Congestive heart failure MIGRATION.763 [id number] Not available 08/18/2022 05:56:38 Brother Diabetes mellitus MIGRATION.169 [id number] Not available 08/18/2022 05:56:38 Medical History Condition [...] SNOMED-CT Code Diagnosis ICD10 Code Diagnosis Note [id number] [facility] _ATHENA_M IGRATION_ DEFAULT_1 _1 , 11/18/2020 00:00:00 11/18/2020 18:01:03 [id number] MATTHIAS Erwin [facility] [place] [address] [place] [address] 12/31/2020 00:00:00 01/16/2021 15:02:23 [id number] MATTHIAS Erwin [facility] [place] [address] [place] [address] 07/03/2021 00:00:00 07/20/2021 10:20:13 [id number] Rafiq Garcia MD [facility] Internal [facility] [place] [address] [place] [address] 01/01/2022 00:00:00 01/17/2022 00:57:02 [id number] MATTHIAS Erwin [facility] Internal [facility] [place] [address] [place] [address] 07/09/2022 00:00:00 07/20/2022 18:00:52 [id number] MATTHIAS Erwin [facility] Internal [facility] [place] [address] [place] [address] 01/07/2023 16:24:59 01/07/2023 17:08:37 Adult health examination 491489152 Z00.01 well exam completed Hyperlipidemia 87053718 E78.5 stable on lovastatin 40mg daily. due for fasting labs Blood gluc ose outside reference range 401062871 R73.09 following A1c just into prediabete s range in past. due for repeat lab Hypothyroidism 15105065 E03.9 stable on thyroid supplement . due for TFTs Long-term drug therapy 913511391 Z79.899 routine CBC and CMP due [id number] MATTHIAS Erwin [facility] Internal [facility] [place] [address] [place] [address] 06/07/2023 10:52:24 06/07/2023 11:35:18 Adult health examination 567416877 Z00.01 well exam completed Hyperlipidemia 20436660 E78.5 stable on lovastatin 40mg daily. Blood gluc ose outside reference range 361568725 R73.09 following A1c just into prediabete s range in past. Hypothyroidism 80135413 E03.9 stable on thyroid supplement . Long-term drug therapy 869103905 Z79.899 labs are all UTD Pain of le ft temporomandibular joint 2381862287 4475559 M26.622 rx for MDP Health Concerns Section Related Observation LastModified by Organization Detai ls LastModified Time None Recorded Concern Status LastModified by Organization Details LastModified Time None Recorded Advance Directives Directive None Recorded Payers Encounter Date Sequence Insurance Name Policy Number Policy Rehman Covered Member ID Rehman Member ID Guarantor Name 01/07/2023 1 [facility] ([facility] [id number] Aranza Sunshine [id number] Aranza Sunshine 06/07/2023 1 [facility] [id number] Aranza Sunshine [id number] Aranza Sunshine Notes Date Note Type Note [...] skin changes; no hair changes Not Available [place] [employer] [facility] [employer] [facility] 07/20/2021 10:20:13 022 text/h tml HyperlipidemiaReported bypatient.Duration:chronic [...] skin changes; no hair changes Not Available [place] [employer] [facility] [employer] [facility] 01/17/2022 00:57:02 023 text/h tml HyperlipidemiaReported bypatient.Duration:chronic [...] skin changes; no hair changes Not Available [facility] [employer] [facility] 07/20/2022 18:00:52 023 text/h tml HyperlipidemiaReported bypatient.Duration:chronic [...] changes; no hair changes Wellness MATTHIAS Erwin [address] [address], [place], [address], [facility] mention [facility] 01/15/2023 23:10:11 12/2 023 text/h tml HyperlipidemiaReported bypatient.Duration:chronic Control:usually well [...] hair changes Wellness MATTHIAS Erwin [address] [address], [place], [address], [facility] mention [facility] 06/17/2023 12:22:19 OBGyn Episode No OBEpisode recorded.
--- OUTSIDE RECORDS SUMMARY | 2024-10-31 10:44 | XMS_ITS | Clinical Summary ---
Author Organization [facility] 8 [facility] Address [address] [place] [address] Care Team Providers Care Test Development Engineer Name Role Phone Kim Lanier Primary Care [...] knee pain 01/01/2022 Hypothyroidism 12/31/2021 Hyperlipidemia 12/26/2019 Surgical History Surgery Date Site/Laterality Comments REFRACTIVE SURGERY 06/20/2006 - 06/19/2007 COMBINED AUGMENTATION MAMMAP LASTY AND ABDOMINOPLASTY 06/20/2006 - 06/19/2007 LIPOSUCTION 06/20/2006 - 06/19/2007 Medical History Medical History Date Comments Hypercholesteremia Thyroid disease Family History Medical History Relation Name Comments Alcohol abuse Other Arthritis Other Hypertension Neg Hx Relation Name Status Comments Other Social History Tobacco Use Types Packs/Day Years Used Date Smoking Tobacco: Never Smokeless Tobacco: Never Alcohol Use Standard Drinks/Week Comments Yes 0 (1 standard drink = 0.6 oz pur e alcohol) Comments Unknown Sex and Gender Information Value Date Recorded Sex Assigned at Not on file 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 Gender Identity Not on file Sexual Orientation Not on file Obstetrics History Last Filed Vital Signs Vital Sign Reading [...] 11/08/2022 9:10 AM CDT Plan of Treatment Health Maintenance Due Date Last Done Comments Breast Cancer Screening-Mammogram 1965 Cervical Cancer Screening 1965 Colon Cancer Screening-Colonoscopy 1965 Depression Screening 1965 Hepatitis C Screening 1965 DTaP/Tdap/Td Vaccine (1 - Tdap) 01/31/1976 Hepatitis B Screening 1983 Regular Well Visit/Exam 18-64 1983 Zoster Vaccine (1 of 2) 2015 Covid-19 Vaccine (2023-2 5 season) 2024 07/14/2021, 06/23/2021 Influenza Vaccine (#1) 2024 Pneumococcal vaccine <65 Aged Out No longer eligible based on patient's age to complete this topic Insurance [facility] CHOICE PLUS Care Teams Test Development Engineer Relationship Specialty Start Date End Date Kim Lanier PA PCP - General Physician Wood Patternmaker Apprentice 10/04/22
--- NOTE | 2024-10-31 12:00 | NEURO_ITS ---
Impression: # Complains of numbness of hands. Non-diabetic. # Bilateral Carpal Tunnel Syndrome, right more than left. # No ulnar neuropathy. # Normal needle/EMG exam. Nerve Conduction Studies Anti Sensory Summary Table Stim Site NR Peak (ms) P-T Amp (µV) Site1 Site2 Delta-P (ms) Dist (cm) Moody (m/s) Left Median Anti Sensory (2-3nd Digit) Wrist 3.4 15.3 Wrist 2-3nd Digit 3.4 14.0 41 Wrist 3.3 21.0 Wrist 2-3nd Digit 3.4 14.0 41 Right Median Anti Sensory (2-3nd Digit) Wrist 3.9 9.5 Wrist 2-3nd Digit 3.9 14.0 36 Wrist 4.8 14.0 Wrist 2-3nd Digit 3.9 14.0 36 Left Radial Anti Sensory (Base 1st Digit) Wrist 2.0 54.5 Wrist Base 1st Digit 2.0 0.0 Right Radial Anti Sensory (Base 1st Digit) Wrist 2.0 13.2 Wrist Base 1st Digit 2.0 0.0 Left Ulnar Anti Sensory (5th Digit) Wrist 2.6 50.6 Wrist 5th Digit 2.6 14.0 54 Right Ulnar Anti Sensory (5th Digit) Wrist 2.7 48.5 Wrist 5th Digit 2.7 14.0 52 Motor Summary Table Stim Site NR Onset (ms) O-P Amp (mV) Site1 Site2 Delta-0 (ms) Dist (cm) Moody (m/s) Left Median Motor (Abd Poll Brev) Wrist 4.2 5.3 Elbow Wrist 5.3 30.0 57 Elbow 9.5 7.7 Right Median Motor (Abd Poll Brev) Wrist 4.5 2.5 Elbow Wrist 4.3 26.0 60 Elbow 8.8 6.2 Left Ulnar Motor (Abd Dig Minimi) Wrist 2.7 5.8 A Elbow Wrist 5.0 30.0 60 A Elbow 7.7 6.3 B Elbow Wrist 3.9 22.0 56 B Elbow 6.6 6.0 Right Ulnar Motor (Abd Dig Minimi) Wrist 2.4 6.7 A Elbow Wrist 4.9 30.0 61 A Elbow 7.3 5.4 B Elbow Wrist 3.8 22.0 58 B Elbow 6.2 5.4 F Wave Studies NR F-Lat (ms) L-R F-Lat (ms) Left Median (Mrkrs) (Abd Poll Brev) 30.55 0.99 Right Median (Mrkrs) (Abd Poll Brev) 31.54 0.99 Left Ulnar (Mrkrs) (Abd Dig Min) 29.79 0.26 Right Ulnar (Mrkrs) (Abd Dig Min) 29.53 0.26 EMG Side Muscle Nerve Root Ins Act Fibs Amp Dur Recrt Comment Right 1stDorInt Ulnar C8-T1 Nml Nml Nml Nml Nml Right Ext Indicis Radial (Post Int) C7-8 Nml Nml Nml Nml Nml Right Ext Digitorum Radial (Post Int) C7-8 Nml Nml Nml Nml Nml Right BrachioRad Radial C5-6 Nml Nml Nml Nml Nml Right PronatorTeres Median C6-7 Nml Nml Nml Nml Nml Right Abd Poll Brev Median C8-T1 Nml Nml Nml Nml Nml Right ABD Dig Min Ulnar C8-T1 Nml Nml Nml Nml Nml Right FlexPolLong Median (Ant Int) C7-8 Nml Nml Nml Nml Nml Right Abd Poll Long Radial (Post Int) C7-8 Nml Nml Nml Nml Nml Left 1stDorInt Ulnar C8-T1 Nml Nml Nml Nml Nml Left Ext Indicis Radial (Post Int) C7-8 Nml Nml Nml Nml Nml Left Ext Digitorum Radial (Post Int) C7-8 Nml Nml Nml Nml Nml Left BrachioRad Radial C5-6 Nml Nml Nml Nml Nml Left PronatorTeres Median C6-7 Nml Nml Nml Nml Nml Left Abd Poll Brev Median C8-T1 Nml Nml Nml Nml Nml Left ABD Dig Min Ulnar C8-T1 Nml Nml Nml Nml Nml Left FlexPolLong Median (Ant Int) C7-8 Nml Nml Nml Nml Nml Left Abd Poll Long Radial (Post Int) C7-8 Nml Nml Nml Nml Nml MTDD
== END 2024-10-31 10:21 | disposition home or self-care (01) ==
LOC: ANHNEURO 10:23
PROVIDERS: PCP Physician Assistant; Visit Provider Physician Assistant
DX: R20.0 Anesthesia of skin (principal); G56.03 Carpal tunnel syndrome, bilateral upper limbs
CPT/HCPCS: 95886; 95911

== ENCOUNTER 2025-03-15 14:20 | Outpatient (CLI) | payer OTHER, SELFPAY ==
--- NOTE | ~2025-03-15 | DEXA_ITS ---
Bone Density Report Name: YASMINE RIZZO Age: 60 Sex: Female Ethnicity: White Date of : 1965 Indication: postmenopausal; screening for osteoporosis; Referring Provider: SHREYA JARVIS Study: Bone densitometry was performed. Exam Date: March 15, 2025 Accession number: [id number] Bone Density: Region BMD T-score Z-score Classification AP Spine(L1-L4) 1.192 1.3 2.7 Normal Femoral Neck (Left) 0.903 0.5 1.8 Normal Total Hip (Left) 1.026 0.7 1.6 Normal Femoral Neck (Right) 0.842 -0.1 1.2 Normal Total Hip (Right) 1.016 0.6 1.6 Normal Total Hip Mean 1.021 0.7 1.6 Normal World Health Organization criteria for BMD impression classify patients as: Normal (T-score at or above -1.0), Osteopenia (T-score between -1.0 and -2.5), or Osteoporosis (T-score at or below -2.5). 10-year Fracture Risk: FRAX not reported because: All T-scores for Spine Total, Hip Total, Femoral Neck at or above -1.0 Impression: The patient has normal bone mass. Discussion: BONE DENSITY IS ABOVE THE MINIMUM DESIRABLE LEVEL AT ALL SKELETAL SITES TESTED. This patient?s bone mineral density is above the minimum desirable level (T-score -1.0 or better) at all sites measured. The patient should follow a healthful lifestyle (good nutrition with adequate calcium and vitamin D, and appropriate weight-bearing exercise). Follow-Up: Consider repeating this study in 5 years or sooner if there is some new clinical indication. Reported by: MYRON on 03/18/2025 10:47:00 AM. Reviewed, dictated and finalized at location A.
--- OUTSIDE RECORDS SUMMARY | 2025-03-15 14:24 | XMS_ITS | Clinical Summary ---
Author Organization [address] Address [address] [place] [address] Care Team Providers Care Cash Management Specialist Name Role Phone Kim Lanier Primary Care Pr ovider Allergies No known active allergies Medications DULoxetine DR (CYMBALTA) 60 mg capsule 7 Active levothyroxine (SYNTHROID) 75 mcg tablet [...] drink = 0.6 oz pur e alcohol) AUDIT-C Answer Date Recorded Q1: How often do you have a drink containing alc ohol? 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 Gender Identity Not on file Sexual Orientation Not on file Obstetrics History Last Filed Vital Signs Vital Sign Reading Time Taken Comments Blood Pressure 115/81 12/12/2024 8:33 AM CDT Pulse 71 12/12/2024 8:33 AM CDT Temperature - - Respiratory Rate - - Oxygen Saturation - - Inhaled Oxygen Concentration - - Weight 76.7 kg (169 lb) 12/12/2024 8:33 AM CDT Height 175.3 cm (5' 9) 12/12/2024 8:33 AM CDT Body Mass Index 24.96 12/12/2024 8:33 AM CDT Plan of Treatment Health Maintenance Due Date Last Done Comments Breast Cancer Screening-Mammogram 1965 Cervical Cancer Screening 1965 Colon Cancer Screening-Colonoscopy 1965 Depression Screening 1965 Hepatitis C Screening 1965 DTaP/Tdap/Td Vaccine (1 - Tdap) 01/31/1976 Hepatitis B Screening 1983 Regular Well Visit/Exam 18-64 1983 Zoster Vaccine (1 of 2) 2015 Covid-19 Vaccine (3 - 2024-2 6 season) 2025 07/14/2021, 06/23/2021 Influenza Vaccine (#1) 2025 Pneumococcal vaccine <65 Aged Out No longer eligible based on patient's age to complete this topic Insurance [facility] CHOICE PLUS [facility] HMO/PPO Address: [address] [address] [place] [address] Care Teams Cash Management Specialist Relationship Specialty Start Date End Date Kim Lanier PA PCP - General Physician Child'S Nurse 10/04/22
--- OUTSIDE RECORDS SUMMARY | 2025-03-15 14:24 | XMS_ITS | Patient Health Record ---
Author Organization [facility] [employer] Address [address] [facility] [address] [place] [address] Care Team Providers Care Employment Law Attorney Name Role Phone Hal Keane Unavailable [phone] Reason For Referral No Information Plan Of Treatment No Information
== END 2025-03-15 14:21 | disposition home or self-care (01) ==
LOC: ANHFOHIMG 14:22
PROVIDERS: PCP Physician Assistant; Visit Provider Physician Assistant
DX: Z13.820 Encounter for screening for osteoporosis (principal); Z78.0 Asymptomatic menopausal state
CPT/HCPCS: 77080

== ENCOUNTER 2025-04-12 01:35 | Day surgery (SDC) | payer OTHER, SELFPAY ==
[2025-04-02 13:00] VITALS: BMI 24.4
--- OUTSIDE RECORDS SUMMARY | 2025-04-12 01:38 | XMS_ITS | Clinical Summary ---
Author Organization [address] Address [address] [place] [address] Care Team Providers Care Operator Technician Name Role Phone Kim Lanier Primary Care [...] on file Legal Sex Female 8:20 PM [employer] Gender Identity Not on file Sexual Orientation [...] patient's age to complete this topic Insurance [facility] CHOICE PLUS Care Teams Operator Technician Relationship Specialty Start Date End Date Kim Lanier PA PCP - General Physician Fiber Design Engineer 10/04/22
--- OUTSIDE RECORDS SUMMARY | 2025-04-12 01:38 | XMS_ITS | Data Portability ---
Author Organization [facility] [employer], Main Office Address [address] [place] [address] Assessment No assessment recorded. Plan of Treatment Reminders Order Date Submit Date Provider Last Modified By Organization Details Last Modified Time Details Appointments None recorded. Lab CMP, serum or plasma 023 023 [facility], [address], [place], [address], 3 19:29:18 CBC w/ auto diff 023 023 [facility], [address], [place], [address], 3 19:29:18 HbA1c (hemoglob in A1c), blood 023 023 [facility], [address], [place], [address], 3 19:29:18 TSH + free T4, serum 023 023 [facility], [address], [place], [address], 3 19:29:18 lipid panel, serum 023 023 [facility], [address], [place], [address], 3 19:29:18 Referral None recorded. Procedures None recorded. Surgeries None recorded. Imaging None recorded. Medication Orders Medrol (Daron) 4 mg tablets in a dose pack 023 023 [id number], [address], [place], [place], [id number], 3 11:35:54 Patient TargetsNo targets recorded. Patient InstructionsNo instructions recorded. Reason for Referral None Reported. Results Created Date Observation Date Name Description Value Unit Range Abnormal Flag Note LastModifiedBy Organization Detail LastModifiedTime 09/23/1909/21/2022 MAMMO , scree timothy, digit al, bilat eral No observ ation record ed. [facility] [address], [place], [address], 09/22/2022 14:23:15 Result Notes None recorded. Problems Name Problem SNOMED Code Status Onset Date Resolution Date Notes Provider Name and Address Organization Details Recorded Time Chest wall pain 572818155 Active Not Available [facility] 3 06:03:15 Mammograph y abnormal 852988528 Active Not Available [facility] 3 06:03:16 Mood swings 92993665 Active Not Available [facility] 3 06:03:16 Osteoarthr itis of knee 258074066 Active Not Available [facility] 3 06:03:16 Gastroente ritis 15400148 Active Not Available [facility] 3 06:03:16 Perimenopa usal disorder 117036001 Active Not Available [facility] 3 06:03:16 Disorder of breast implant 709082002 Active Not Available [facility] 3 06:03:16 Pain in cervical spine 411108280 Active Not Available [facility] 3 06:03:16 Low back pain 968287313 Active Not Available [facility] 3 06:03:16 Hypoglycem ia 958510134 Active Not Available [facility] 3 06:03:16 Lesion of ulnar nerve 218169573 Active Not Available [facility] 3 06:03:16 Osteoarthr itis 629424499 Active Not Available [facility] 3 06:03:16 Infectious enteritis of intestine 14070046 Active Not Available [facility] 3 06:03:16 Occult blood detected in feces 37836988 Active Not Available [facility] 3 06:03:17 Stress 10105199 Active Not Available [facility] 3 06:03:17 Hyperlipid emia 59694245 Active 2019 Not Available [facility] 3 06:03:17 Hypothyroi dism 33984609 Active 2021 Not Available [facility] 3 06:03:16 Bilateral knee pain Active 2021 Not Available [facility] 3 06:03:15 Blood glucose outside reference range 517322867 Active 2021 Not Available [facility] 3 06:03:16 Left temporoman dibular joint disorder 6186715901864 9100 Active [address] [facility], [address] [facility], [place], [address] , [employer] [facility] [employer] [facility] 3 11:35:13 Pain of left temporoman dibular joint 9637712231737 9107 Active 2022 MATTHIAS Erwin [address], [address], [place], [address] , [employer] [facility] [employer] [facility] 3 11:35:19 Problem Notes None recorded. Procedures Surgical History Date Name Laterality Status Provider Name and Address Organization Details Recorded Time 12/22/19 23 Cataract Surgery completed CALVIN Gooden [employer] [facility] [employer] [facility] 01/07/2023 16:30:26 09/22/19 23 Date of Last Mammogram completed CALVIN Gooden [place] [employer] [facility] 09/22/2022 14:22:55 06/20/19 23 Cataract Surgery completed CALVIN Gooden MS Ray [facility] [employer] [facility] 06/07/2023 11:00:43 06/06/20 15 Date of Last Colonoscopy completed Not Available [facility] 08/18/2022 05:56:29 06/06/20 15 colonoscopy completed Not Available [facility] 08/19/19 05:56:31 Breast augmentation w/implt completed Not Available [facility] 08/18/2022 05:56:31 Orthopedic Surgery completed Not Available [facility] 08/18/2022 05:56:31 Lasik completed Not Available [facility] 06/2022 05:56:31 Orthopedic Surgery completed Not Available [facility] 08/18/2022 05:56:31 Imaging Results None recorded. Procedure Notes None recorded. Medical Equipment None [...] Heart rate Body temperature Body weight Systolic And Diastolic Provider Name and Address Organization Details Last Updated DateTime 2 31.3 kg/m2 175.26 cm 99 % 99 % 100 /min 97.6 [degF] 47766.5 8 g 118/70 mm[Hg] Not Available [employer] 3 06:02:04 Date Recorded Body mass index (BMI) Body height Oxygen saturation Oxygen saturation in Arterial blood by Pulse oximetry Heart rate Respiratory rate Body temperature Body weight Systolic And Diastolic Provider Name and Address Organization Details Last Updated DateTime 3 30.9 kg/m2 175.26 cm 97 % 97 % 84 /min 16 /min 97.2 [degF] 84712.8 1 g 120/80 mm[Hg] Not Available [facility] 3 06:02:05 Date Recorded Body mass index (BMI) Body height Oxygen saturation Oxygen saturation in Arterial blood by Pulse oximetry Heart rate Respiratory rate Body temperature Body weight Systolic And Diastolic Provider Name and Address Organization Details Last Updated DateTime 2 32.4 kg/m2 175.26 cm 95 % 95 % 90 /min 16 /min 96.2 [degF] 53841.1 7 g 122/80 mm[Hg] Not Available [facility] 3 06:02:04 Date Recorded Body height Body temperature Body mass index (BMI) Body weight Respiratory rate Oxygen saturation Oxygen saturation in Arterial blood by Pulse oximetry Heart rate Systolic And Diastolic Provider Name and Address Organization Details Last Updated DateTime 3 175.26 cm 96.5 [degF] 31.7 kg/m2 77234.3 6 g 16 /min 97 % 97 % 88 /min 128/80 mm[Hg] CALVIN Gooden Jody [employer] [facility] 3 16:31:03 Date Recorded Body height Body temperature Body mass index (BMI) Body weight Respiratory rate Oxygen saturation Oxygen saturation in Arterial blood by Pulse oximetry Heart rate Systolic And Diastolic Provider Name and Address Organization Details Last Updated DateTime 3 175.26 cm 97.7 [degF] 32.2 kg/m2 14767.1 4 g 16 /min 96 % 96 % 105 /min 120/78 mm[Hg] [facility] [employer] [facility] 3 11:01:27 Social History Question Answer Notes LastModified by Organizat ion Details LastModified Time Tobacco Smoking Status Never Smoker Not Available [facility] 08/18/2022 05:56:04 What Is Your Level Of Caffeine Consumption? Heavy [id number] Information not available 08/18/2022 How Much Tobacco Do You Chew? None MIGRATION.[id number] 026 Information not available 08/18/2022 In The 14 Days Before Symptom Onset, Have You Had Close Contact With A Laboratory-confirm ed COVID-19 While That Case Was Ill? No [id number].[id number] 026 Information not available 08/18/2022 In The 14 Days Before Symptom Onset, Have You Had Close Contact With A Person Who Is Under Investigation For COVID-19 While That Person Was Ill? No MIGRATION.[id number] 026 Information not available 08/18/2022 What Type Of Diet Are You Following? REGULAR MIGRATION.5578215 026 Information not available 08/18/2022 Which Illicit Or Recreational Drugs Have You Used? No MIGRATION.[id number] 026 Information not available 08/18/2022 Have There Been Any Changes To Your Family Or Social Situation? No MIGRATION.[id number] 026 Information not available 08/18/2022 Do You Use Insect Repellent Routinely? No MIGRATION.[id number] 026 Information not available 08/18/2022 What Is Your Relationship Status? MIGRATION.[id number] 026 Information not available 08/18/2022 Do You Use Your Seat Belt Or Car Seat Routinely? Yes MIGRATION.8579275 026 Information not available 08/18/2022 Do You Have Smoke And Carbon Monoxide Detectors In Your Home? Yes MIGRATION.3501943 026 Information not available 08/18/2022 How Much Tobacco Do You Smoke? No MIGRATION.9648186 026 Information not available 08/18/2022 Do You Use Sunscreen Routinely? Yes MIGRATION.4799863 026 Information not available 08/18/2022 Have You Recently Traveled Abroad? No MIGRATION.5126976 026 Information not available 08/18/2022 Do You Have Any Dietary Restrictions? No MIGRATION.2710989 026 Information not available 08/18/2022 Sex: Unknown Functional Status Question Answer Note LastModified by Organizat ion Details LastModified Time Do you use any illicit or recreational drugs? No MIGRATION.[id number] Information not available 08/18/2022 Do you or have you ever used any other forms of tobacco or nicotine? No MIGRATION.619933 7552 Information not available 08/18/2022 What is your level of alcohol consumption? Occasional MIGRATION.163968 3128 Information not available 08/18/2022 Do you or have you ever used smokeless tobacco? Never used smokeless tobacco MIGRATION.851421 6114 Information not available 08/18/2022 Are you currently employed? 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 Never used electronic cigarettes MIGRATION.331413 7584 Information not available 08/18/2022 What is your exercise level? None MIGRATION.895947 5360 Information not available 08/18/2022 Mental Status None recorded. Family History Relationship Description Onset Age of this Age Resolved Age Notes LastModified by Organization Details LastModified Time Paternal Aunt Malignant neoplasm of rectum [id number].590 [id number] Not available 08/18/2022 05:56:38 Mother Aneurysm MIGRATION.197 [id number] Not available 08/18/2022 05:56:38 Mother Congestive heart failure MIGRATION.027 [id number] Not available 08/18/2022 05:56:38 Brother Diabetes mellitus MIGRATION.266 [id number] Not available 08/18/2022 05:56:38 Medical History Condition [...] Diagnosis SNOMED-CT Code Diagnosis ICD10 Code Diagnosis IMO Codes Diagnosis Note [id number] [facility] _ATHENA_M IGRATION_ DEFAULT_1 _1 , 11/18/2020 00:00:00 11/18/2020 18:01:03 [id number] MATTHIAS Erwin [facility] [place] [address] [place] [address] 12/31/2020 00:00:00 01/16/2021 15:02:23 [id number] MATTHIAS Erwin [facility] [place] [address] [place] [address] 07/03/2021 00:00:00 07/20/2021 10:20:13 [id number] Rafiq Garcia MD [facility] [place] [address] [place] [address] 01/01/2022 00:00:00 01/17/2022 00:57:02 [id number] MATTHIAS Erwin [facility] [place] [address] [place] [address] 07/09/2022 00:00:00 07/20/2022 18:00:52 [id number] MATTHIAS Erwin [facility] [place] [address] [place] [address] 01/07/2023 16:24:59 01/07/2023 17:08:37 Adult health examination 656410621 Z00.01 well exam completed Hyperlipidemia 41381661 E78.5 stable on lovastatin 40mg daily. due for fasting labs Blood gluc ose outside reference range 456384216 R73.09 following A1c just into prediabete s range in past. due for repeat lab Hypothyroidism 01437612 E03.9 stable on thyroid supplement . due for TFTs Long-term drug therapy 905716410 Z79.899 routine CBC and CMP due [id number] MATTHIAS Erwin [facility] [place] [address] [place] [address] 06/07/2023 10:52:24 06/07/2023 11:35:18 Adult health examination 314951844 Z00.01 well exam completed Hyperlipidemia 09184363 E78.5 stable on lovastatin 40mg daily. Blood gluc ose outside reference range 332251904 R73.09 following A1c just into prediabete s range in past. Hypothyroidism 51966830 E03.9 stable on thyroid supplement . Long-term drug therapy 137771245 Z79.899 labs are all UTD Pain of le ft temporomandibular joint 2537645996 8914417 M26.622 rx for MDP Health Concerns Section Related Observation LastModified by Organization Detai ls LastModified Time None Recorded Concern Status LastModified by Organization Details LastModified Time None Recorded Advance Directives Directive None Recorded Payers Insurance Date Sequence Insurance Name Policy Number Policy Rehman Covered Member ID Rehman Member ID Guarantor Name 05/18/2023 1 [place] [id number] Aranza Lundberg Bita [id number] Aranza Lundberg Bita 06/24/2023 1 [facility] [id number] Aranza Lundberg Bita [id number] Aranza Lundberg Bita Notes Date Note Type Note Provider Name and Address Organization Details Recorded Time 01/08/20 23 text/htm l HyperlipidemiaReported by PatientHPIFor duration, patient reportschronic. For compliance, patient reportsnoncompliant with dietanddoes not exercisebut reportscompliant. For control, patient reportsusually well controlled. For complications, patient reportsno coronary artery disease,no peripheral artery disease, andno cardiovascular disease. HypothyroidismReported by PatientHPIFor context/risk, patient reportshistory of hypothyroidismandfemale genderbut reportsnormal thyroid levels,no history of head or neck radiation during childhood,no history of thyroid disease,no history of hyperthyroidism, andno excess iron exposure. For exercise, patient reportsno exercise. For quality, patient reportsnot changing. For duration, patient reportsconstant. For onset/timing, patient reportsstill present. For modifying factors, patient reportsmedication. For associated symptoms, patient reportsno cold intolerance,no heat intolerance,no weight loss,no weight gain,no double vision,no dry eyes,no hoarseness,no difficulty swallowing,no neck masses,no deepening of the voice,no fast heart rate,no increased blood pressure,no palpitations,no chest pain,no chest tightess or pressure,no constipation,no diarrhea,no vomiting,no decreased appetite,no loose stools,no irregular menstrual periods,no excessive sweating,no joint pain,no numbness,no tingling of the hands or feet,no dry skin,no tremor,no nervousness,no anxiety,no depression,no fatigue,no sleep difficulties,no skin changes, andno hair changes. Wellness MATTHIAS Erwin [address], [place], [address], [place] [facility] 01/15/2023 23:10:11 06/07/20 23 text/htm l HyperlipidemiaReported by PatientHPIFor duration, patient reportschronic. For compliance, patient reportsdoes not exercisebut reportscompliantandcompliant with diet. For control, patient reportsusually well controlled. For complications, patient reportsno coronary artery disease,no peripheral artery disease, andno cardiovascular disease. HypothyroidismReported by PatientHPIFor context/risk, patient reportshistory of hypothyroidismandfemale genderbut reportsnormal thyroid levels,no history of head or neck radiation during childhood,no history of thyroid disease,no history of hyperthyroidism, andno excess iron exposure. For exercise, patient reportsno exercise. For quality, patient reportsnot changing. For duration, patient reportsconstant. For onset/timing, patient reportsstill present. For modifying factors, patient reportsmedication. For associated symptoms, patient reportsno cold intolerance,no heat intolerance,no weight loss,no weight gain,no double vision,no dry eyes,no hoarseness,no difficulty swallowing,no neck masses,no deepening of the voice,no fast heart rate,no increased blood pressure,no palpitations,no chest pain,no chest tightess or pressure,no constipation,no diarrhea,no vomiting,no decreased appetite,no loose stools,no irregular menstrual periods,no excessive sweating,no joint pain,no numbness,no tingling of the hands or feet,no dry skin,no tremor,no nervousness,no anxiety,no depression,no fatigue,no sleep difficulties,no skin changes, andno hair changes. Wellness MATTHIAS Erwin [address], [place], [address], [employer] 06/17/2023 12:22:19 OBGyn Episode No OBEpisode recorded.
[2025-04-12 08:29] VITALS: BP 111/81; PULSE 95; RESP 19; TEMP 36.2; O2SAT 99
[2025-04-12] MEDS: LACTATED RINGERS 1,000 ML 150 ML IV CONT (08:40)
--- NOTE | 2025-04-12 09:28 | PM.HPGS ---
History of Present Illness History of Present Illness Consent: Risks, benefits, and alternatives have been discussed and questions answered. Patient agrees to proceed with procedure. Chief complaint: Screening Narrative: Aranza Sunshine is a 60 year old female here for screening colonoscopy, last one 10 years ago Review of Systems Review of Systems: All systems reviewed & are unremarkable except as noted in HPI and below PMFSH Past Medical History Medical History (Updated 04/12/25 @ 09:29 by Dusty Villatoro MD) Colon cancer screening Screening mammogram, encounter for Encounter for gynecological examination Surgical History Surgical History H/O breast biopsy H/O gynecological procedure cryosurgery ~ 2000 History of orthopedic surgery H/O breast augmentation Family History Family History Father Alcoholism Heart disease Sibling Depression Other Family history of alcoholism Family history of arthritis Hypertension Social History Social History (Updated 02/25/25 @ 09:38 by Ofe Chowdhury CMA) Smoking status: Never smoker Alcohol intake: never Substance use: never Substance use type: does not use Do You Feel Safe in your Home?: Yes Lack of Transportation: No Lack of Food: Never True Current Housing: I Have Housing Concerned About Future Housing: No Difficulty Paying Gas/Electric Bills: No Difficulty Paying for Meds: No Currently Unemployed: YES Education: High School Diploma/GED Difficulty w/ Childcare or Family Care: No Living arrangements: alone Occupation/Education: occupation Gender identity (if verbalized by the patient): Female Sexual Orientation (if Verbalized by the Patient): Straight or Heterosexual Meds Home Medications and Allergies Home Medications ?Medication ?Instructions ?Recorded ?Confirmed ?Type duloxetine 60 mg capsule,delayed 60 mg PO DAILY 04/09/20 04/12/25 History release levothyroxine 75 mcg tablet 75 mcg PO DAILY 04/09/20 04/12/25 History lovastatin 40 mg tablet 40 mg PO QPM 04/09/20 04/12/25 History Allergies Allergy/AdvReac Type Severity Reaction Status Date / Time No Known Allergies Allergy Verified 04/12/25 08:28 Vital Signs Vital Signs - 24 hr 04/12/25 08:29 Temperature 97.2 F L Pulse Rate 95 Respiratory Rate 19 Blood Pressure 111/81 Pulse Oximetry 99 Oxygen Delivery Room Air Exam Const: General: comfortable and no acute distress HENMT: Face/Nose/Sinus: Normal nares present Eyes: General: appearance normal, both eyes and all related structures Neck: Neck: no JVD Resp: Auscultation: clear to auscultation bilaterally Cardio: Rate: regular rate Rhythm: regular rhythm GI: Inspection: non-distended GI Palp: Yes Soft to palpation Skin: General skin exam: normal color Extrem: General: normal to inspection Psych: Mental Status: mental status grossly normal Assessment and Plan Assessment and plan (1) Colon cancer screening: Code(s): Z12.11 - Encounter for screening for malignant neoplasm of colon Status: Acute Assessment and Plan: colonoscopy
--- NOTE | 2025-04-12 09:34 | WPDANESEPPF ---
Anes - Initial Pre Proc Eval Procedure: Operation Date: 04/12/25 10:00 Proposed Procedures p Screening Colonoscopy - Dusty Villatoro MD Date/Time: 04/12/25 09:34 Surgeon: Dusty Villatoro MD Pre Op Diagnosis: Screening Patient Data Age: 60 Gender: F Height: 1.75 m Weight: 73 kg Last Vital Signs Temp 97.2 F L 04/12/25 08:29 Pulse 95 04/12/25 08:29 Resp 19 04/12/25 08:29 BP 111/81 04/12/25 08:29 Pulse Ox 99 04/12/25 08:29 O2 Del Method Room Air 04/12/25 08:29 Allergies Allergy/AdvReac Type Severity Reaction Status Date / Time No Known Allergies Allergy Verified 04/12/25 08:28 Home Medications ?Medication ?Instructions ?Recorded ?Confirmed ?Type duloxetine 60 mg capsule,delayed 60 mg PO DAILY 04/09/20 04/12/25 History release levothyroxine 75 mcg tablet 75 mcg PO DAILY 04/09/20 04/12/25 History lovastatin 40 mg tablet 40 mg PO QPM 04/09/20 04/12/25 History Patient hx anesthesia problems: none Family hx anesthesia problems: none Results Review: All pre-operative results and documents have been reviewed as part of the pre-operative evaluation. COUNT INCLUDES [facility] Past Medical History Medical History Colon cancer screening Screening mammogram, encounter for Encounter for gynecological examination Surgical History Surgical History H/O breast biopsy H/O gynecological procedure cryosurgery ~ 2000 History of orthopedic surgery H/O breast augmentation Family History Family History Father Alcoholism Heart disease Sibling Depression Other Family history of alcoholism Family history of arthritis Hypertension Social History Social History Smoking status: Never smoker Alcohol intake: never Substance use: never Substance use type: does not use Do You Feel Safe in your Home?: Yes Lack of Transportation: No Lack of Food: Never True Current Housing: I Have Housing Concerned About Future Housing: No Difficulty Paying Gas/Electric Bills: No Difficulty Paying for Meds: No Currently Unemployed: YES Education: High School Diploma/GED Difficulty w/ Childcare or Family Care: No Living arrangements: alone Occupation/Education: occupation Gender identity (if verbalized by the patient): Female Sexual Orientation (if Verbalized by the Patient): Straight or Heterosexual Anes - Eval Final PreProcedure Day of Procedure 04/12/25 09:34 Patient weight: normal Lungs: normal air movement Airway: Mallampati scale class II Neurological: alert and oriented Last oral intake: >/= 8 hours ASA classification: II Emergent: no Anesthetic plan: proceed Anesthesia type and monitoring: general GIVS and standard monitoring Results Review: All pre-operative results and documents have been reviewed as part of the pre-operative evaluation. Hyperlipidemia, hypothyroidism. Pt active, 1-2 fos, no cp or sob. Informed Consent: The patient's anesthetic plan and its attendant risks and benefits were discussed with the patient/family/POA. Questions were solicited and answers provided to the satisfaction of the patient/family/POA.
[2025-04-12 10:00] VITALS: BP 86/57; PULSE 86; RESP 12; O2SAT 96
[2025-04-12 10:10] VITALS: BP 89/60; PULSE 77; RESP 12; O2SAT 96
[2025-04-12 10:20] VITALS: BP 114/66; PULSE 85; RESP 21; O2SAT 98
== END 2025-04-12 10:30 | disposition home or self-care (01) ==
PROVIDERS: PCP Physician Assistant; Referring Provider Physician Assistant; Visit Provider Internal Medicine Gastroenterology
PROC: 0DJD8ZZ Inspection of Lower Intestinal Tract, Via Natural or Artificial Opening Endoscopic (ICD-10-PCS; CPT 45378; principal; 2025-04-12 10:00)
DX: Z12.11 Encounter for screening for malignant neoplasm of colon (principal)
CPT/HCPCS: 45378; J1596; J2003; J2704; J7120

== ENCOUNTER 2025-04-23 07:38 | Outpatient (CLI) | payer OTHER, SELFPAY ==
--- NOTE | ~2025-04-23 | MM_ITS ---
EXAMINATION: screening [facility] BI w mira INDICATION: Asymptomatic, referred for screening mammogram COMPARISON: 04/25/2024 through 05/23/2020 TECHNIQUE: Digital Breast Tomosynthesis CC, MLO, and implant displaced CC and MLO views of Both breasts were obtained with computer-aided detection to assist in interpretation of the study. FINDINGS: There are scattered areas of fibroglandular density. Bilateral breast Retropectoral Saline implants in place appears intact. No focal dominant mass, architectural distortion, or suspicious microcalcifications are identified. There are no features to suggest malignancy. IMPRESSION: 1. No evidence of malignancy in the breasts. 2. Both breasts Retropectoral Saline implants appears intact. Recommend continued screening mammography BI-RADS 1, NEGATIVE Reviewed, dictated and finalized at location B. [employer]
--- OUTSIDE RECORDS SUMMARY | 2025-04-23 07:42 | XMS_ITS | Patient Health Record ---
Author Organization [facility] [employer] Address [address] [facility] [address] [place] [address] Care Team Providers Care Photographer Name Role Phone Hal Keane Unavailable [phone] Reason For Referral No Information Plan Of Treatment No Information
--- OUTSIDE RECORDS SUMMARY | 2025-04-23 07:42 | XMS_ITS | Clinical Summary ---
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
== END 2025-04-23 07:39 | disposition home or self-care (01) ==
LOC: CHSIMG 07:39
PROVIDERS: PCP Physician Assistant; Visit Provider Obstetrics & Gynecology
DX: Z12.31 Encounter for screening mammogram for malignant neoplasm of breast (principal)
CPT/HCPCS: 77063; 77067